=== PATIENT | female | born 1995 | race Hispanic/Latino ===

== ENCOUNTER 2016-12-31 13:50 | Emergency (ER) | payer MEDICARE, OTHER, MEDICAID ==
[2016-12-31 13:50] VITALS: BMI 23.6
[2016-12-31 15:01] LABS: ADD MANUAL DIFF? NO
[2016-12-31 15:03] LABS: BASO # 0.02 K/mm3 (0.0-2.0); BASO % 0.2 % (0.0-3.0); EOS # 0.2 (0.0-0.7); EOS % 1.9 % (1.5-5.0); GRAN % 77.5 % (50.0-68.0); HEMATOCRIT 39.3 % (36.0-48.0); LYMPH # 1.4 (1.2-3.4); LYMPH % 16.5 % (22.0-35.0); MEAN CORPUSCULAR HEMOGLOBIN 32.9 pg (25.0-35.0); MEAN CORPUSCULAR HGB CONC 36.1 g/dl (31.0-37.0); MONO # 0.3 (0.1-0.6); MONO % 3.9 % (1.0-6.0); PLATELET COUNT 229 10^3/uL (120.0-450.0); RED CELL DISTRIBUTION WIDTH 11.7 % (11.5-14.5); WHITE BLOOD COUNT 8.4 10^3/ul (4.5-11.0)
[2016-12-31 15:13] LABS: ALB/GLOB RATIO 1.6 (1.1-1.8); ALKALINE PHOSPHATASE 65 U/L (38-133); ALT/SGPT 23 U/L (7-56); AST/SGOT 25 U/L (15-39); BILIRUBIN,TOTAL 0.5 mg/dL (0.2-1.3); BLOOD UREA NITROGEN 6 mg/dL (7-21); CALCIUM 9.9 mg/dL (8.4-10.5); CARBON DIOXIDE 26 mmol/L (21-33); CHLORIDE 102 mmol/L (98-107); GFR AFRICAN-AMERICAN > 60; GLUCOSE,RANDOM 146 mg/dL (70-110); POTASSIUM 4.1 mmol/L (3.6-5.0); SODIUM 135 mmol/L (132-148); TOTAL PROTEIN 7.4 g/dL (5.8-8.3)
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
[2016-12-31 15:52] LABS: URINE APPEARANCE CLEAR (CLEAR); URINE BILIRUBIN NEGATIVE (NEGATIVE); URINE BLOOD NEGATIVE (NEGATIVE); URINE COLOR STRAW (YELLOW); URINE GLUCOSE (UA) NEGATIVE (NEGATIVE); URINE KETONE NEGATIVE (NEGATIVE); URINE LEUKOCYTE ESTERASE NEGATIVE Leu/uL (NEGATIVE); URINE PROTEIN NEGATIVE mg/dL (<30 mg/dL); URINE UROBILINOGEN 0.2 E.U./dL (<1 E.U./dL)
--- NOTE | 2016-12-31 16:29 | RAD ---
HISTORY: pes eval COMPARISON: 07/16/2016 FINDINGS: LUNGS: No active pulmonary disease. PLEURA: No significant pleural effusion identified, no pneumothorax apparent. CARDIOVASCULAR: Normal. OSSEOUS STRUCTURES: No significant abnormalities. VISUALIZED UPPER ABDOMEN: Normal. OTHER FINDINGS: None. IMPRESSION: No active disease.
--- NOTE | 2016-12-31 18:17 | CARD ---
APPROVED REPORT EKG Measurement Heart [id number] <Conclusion> Sinus tachycardia Incomplete right bundle branch block Nonspecific T wave abnormality Abnormal ECG
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
[2017-01-01] MEDS ORDERED: DiphenhydrAMINE 50 mg/ml Inj IM PRN (10:00)
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
[2017-01-01 13:05] VITALS: RESP 18
[2017-01-01 13:16] VITALS: BP 120/88; PULSE 120; TEMP 99.9; O2SAT 97
[2017-01-01] MEDS ORDERED: OLANZapine 5 mg Disintegrating Tab PO SCH (22:00)
== END 2017-01-01 13:19 | disposition short-term general hospital (02) ==
LOC: ED 13:50
DX: Z00.8 Encounter for other general examination (principal); F41.9 Anxiety disorder, unspecified; F31.9 Bipolar disorder, unspecified
CPT/HCPCS: 71010; 80053; 80178; 81003; 84703; 85025; 90791; 93005; 96372; 99285; G0480; J1200; J1630; J2060

== ENCOUNTER 2017-04-18 23:19 | Emergency (ER) | payer MEDICARE, OTHER ==
[2017-04-18 23:20] VITALS: BMI 23.6
[2017-04-18 23:36] VITALS: TEMP 97.5; O2SAT 99
[2017-04-19] MEDS ORDERED: Sodium Chloride 0.9% 1,000 ML IV STA (00:21)
[2017-04-19] MEDS ORDERED: Atrop/Hyosc/Scopal/PB Elixir (120 ml) PO STA (00:21)
[2017-04-19] MEDS ORDERED: Alum-Mag Hydrox-Simethicone Susp (30 mL) PO STA (00:21)
--- NOTE | 2017-04-19 01:11 | ED PDOC ---
Arrival/HPI - General Historian: Patient <Sophia Gruber PA-C - Last Filed: 04/20/17 01:09> <Oz Wilson - Last Filed: 04/20/17 06:18> - General Chief Complaint: GI Problem Time Seen by Provider: 04/18/17 23:48 - History of Present Illness Narrative History of Present Illness (Text): 04/19/17 01:03 Patient w/ pmh of GERD, complains of 1 month h/o intermittent epigastric pain radiating to the sternal area of her chest, described as heartburn, and is typical of her heartburn symptoms. She reports having a h/o a minor ulcer to her stomach dx via endoscropy by her GI MD in [facility], [place], was placed on anti-ulcer medication which she took and complete, however is currently not on any at this time. Otherwise: (+) nausea, (-) vomiting, (-) diarrhea, (-) chest pain, (-) SOB, (-) fever, (-) cough, (-) urinary symptoms, (-) melena, (-) hematochezia. Has no history of prior abdominal surgery. PMD Autumn (Sophia Gruber PA-C) Past Medical History - Provider Review Nursing Documentation Reviewed: Yes - Infectious Disease Hx of Infectious Diseases: None - Tetanus Immunization Tetanus Immunization: Unknown - Past Medical History Past Medical History: No Previous - Cardiac Hx Cardiac Disorders: No - Pulmonary Hx Respiratory Disorders: Yes Hx Bronchitis: Yes - Neurological Hx Neurological Disorder: No - HEENT Hx HEENT Disorder: No - Renal Hx Renal Disorder: No - Endocrine/Metabolic Hx Endocrine Disorders: No - Hematological/Oncological Hx Blood Disorders: No - Integumentary Hx Dermatological Disorder: No - Musculoskeletal/Rheumatological Hx Musculoskeletal Disorders: No Hx Falls: No - Gastrointestinal Hx Gastrointestinal Disorders: No - Genitourinary/Gynecological Hx Genitourinary Disorders: No - Psychiatric Hx Psychophysiologic Disorder: Yes Hx Anxiety: Yes Hx Bipolar Disorder: Yes Hx Depression: Yes Hx Hallucinations: Yes Hx Psychosis: Yes Hx Schizophrenia: Yes Hx Substance Use: No - Past Surgical History Past Surgical History: No Previous - Surgical History Hx Abdominal Aortic Aneurysm Repair: No - Anesthesia Hx Anesthesia: No - Suicidal Assessment Feels Threatened In Home Enviroment: No <Sophia Gruber PA-C. - Last Filed: 04/20/17 01:09> Family/Social History - Physician Review Nursing Documentation Reviewed: Yes Family/Social History: No Known Family HX Smoking Status: Former Smoker Hx Alcohol Use: No Hx Substance Use: No Substance used: overdose ambien Hx Substance Use Treatment: Yes <Sophia Gruber PA-C - Last Filed: 04/20/17 01:09> Allergies/Home Meds <Sophia Gruber PA-C - Last Filed: 04/20/17 01:09> <Oz Wilson - Last Filed: 04/20/17 06:18> Allergies/Adverse Reactions: Allergies No Known Allergies Allergy (Verified 12/31/16 14:40) Home Medications: Home Meds Medication Instructions Recorded Confirmed Paliperidone Palmitate [Invega 234 mg IM .MONTHLY 11/07/15 04/18/17 Sustenna] Devens Carbonate [Devens 300 mg PO .MORNING 09/23/16 04/18/17 Carbonate 300MG] Devens Carbonate [Devens 600 mg PO .HS 09/23/16 04/18/17 Carbonate] Paliperidone [Invega] 9 mg PO DAILY 09/23/16 04/18/17 Review of Systems - Review of Systems Constitutional: Normal. absent: Fatigue, Weight Change, Fevers Respiratory: Normal. absent: SOB, Cough, Sputum Cardiovascular: Normal. absent: Chest Pain, Palpitations, Edema Gastrointestinal: Normal, Abdominal Pain, Nausea. absent: Stool Changes, Vomiting, Appetite Changes Musculoskeletal: Normal. absent: Arthralgias, Back Pain, Neck Pain Skin: Normal. absent: Rash, Pruritis, Skin Lesions <Sophia Gruber PA-C - Last Filed: 04/20/17 01:09> Physical Exam <Sophia Gruber PA-C - Last Filed: 04/20/17 01:09> <Oz Wilson - Last Filed: 04/20/17 06:18> - Physical Exam Narrative Physical Exam (Text): 04/19/17 01:11 GENERAL APPEARANCE: Patient is awake, alert, oriented x 3, in mild painful distress. SKIN: Warm, dry; (-) cyanosis. EYES: (-) conjunctival pallor, (-) scleral icterus. ENMT: Mucous membranes dry. NECK: (-) tenderness, (-) stiffness, (-) lymphadenopathy. CHEST AND RESPIRATORY: (-) rales, (-) rhonchi, (-) wheezes; breath sounds equal bilaterally. HEART AND CARDIOVASCULAR: (-) irregularity; (-) murmur, (-) gallop. ABDOMEN AND GI: (-) distention. Bowel sounds active; (+) mild tenderness in the epigastric area, (-) guarding, (-) rebound, (-) palpable masses, (-) CVA tenderness. EXTREMITIES: (-) deformity, (-) edema, (+) distal pulses. NEURO AND PSYCH: Mental status as above; (-) focal findings. (Sophia Gruber PA-C) Vital Signs Temp Pulse Resp BP Pulse Ox 04/19/17 02:15 68 24 128/70 99 04/18/17 23:31 97.5 F L 64 18 132/72 99 Medical Decision Making <Sophia Gruber PA-C - Last Filed: 04/20/17 01:09> <Oz Wilson - Last Filed: 04/20/17 06:18> ED Course and Treatment: 04/19/17 01:12 21 yo F w/ pmh of GERD, complains of 1 month h/o intermittent epigastric pain radiating to the sternal area of her chest, described as heartburn, and is typical of her heartburn symptoms. Plan: -- Labs -- IV fluids -- Protonix / Zofran / GI cocktail -- Reassess and disposition Labs reviewed and are wnl. On re-evaluation, patient reports significant improvement of her symptoms. Reports no abdominal pain, N/V. On exam, abdomen remains soft with no tenderness, no guarding or rebound. Patient notified of likely diagnosis of GERD / dyspepsia. Advised to follow up with primary care physician in 1-2 days without fail. Advised to take medication as prescribed. Return to the emergency room at any time for any new or worsening symptoms. Patient states she fully agrees with and understands discharge instructions. States that she agrees with the plan and disposition. Verbalized and repeated discharge instructions and plan. I have given the patient opportunity to ask any additional questions. (Sophia Gruber PA-C) - Lab Interpretations Lab Results: 04/19/17 01:16 04/19/17 01:16 Lab Results 04/19/17 01:16: Sodium 139, Potassium 3.5 L, Chloride 97, Carbon Dioxide 34 H, Anion Gap 12, BUN 10, Creatinine 0.7, Est GFR ( Amer) > 60, Est GFR (Non- Af Amer) > 60, Random Glucose 122 H, Calcium 9.7, Total Bilirubin 0.9, AST 30, ALT 25, Alkaline Phosphatase 88, Total Protein 7.5, Albumin 4.6, Globulin 2.9, Albumin/Globulin Ratio 1.6, Lipase 55 04/19/17 01:16: WBC 10.7 D, RBC 4.95, Hgb 16.0, Hct 46.3, MCV 93.5, MCH 32.3, MCHC 34.6, RDW 11.4 L, Plt Count 233, MPV 10.0, Gran % 71.9 H, Lymph % (Auto) 17.3 L, [place] % (Auto) 5.9, Eos % (Auto) 4.4, Baso % (Auto) 0.5, Gran # 7.70 H, Lymph # 1.9, [place] # 0.6, Eos # 0.5, Baso # 0.05 - Medication Orders Current Medication Orders: Discontinued Medications Al Hydrox/Mg Hydrox/Simethicone (Maalox Plus 30 Ml) 30 ml PO STAT STA Stop: 04/19/17 00:22 Last Admin: 04/19/17 01:02 Dose: 30 ml Belladonna/Phenobarbital ( Elixir) 5 ml PO STAT STA Stop: 04/19/17 00:22 Last Admin: 04/19/17 01:38 Dose: 5 ml Sodium Chloride (Sodium Chloride 0.9%) 1,000 mls @ 1,000 mls/hr IV .Q1H STA Stop: 04/19/17 01:20 Last Admin: 04/19/17 01:02 Dose: 1,000 mls/hr Lidocaine HCl (Lidocaine 2% Viscous) 15 ml PO STAT STA Stop: 04/19/17 00:22 Last Admin: 04/19/17 01:01 Dose: 15 ml Ondansetron HCl (Zofran Inj) 4 mg IVP STAT STA Stop: 04/19/17 00:22 Last Admin: 04/19/17 01:39 Dose: 4 mg Pantoprazole Sodium (Protonix Inj) 40 mg IVP STAT STA Stop: 04/19/17 00:22 Last Admin: 04/19/17 01:02 Dose: 40 mg Potassium Chloride (Potassium Chloride Oral Soln) 40 meq PO STAT STA Stop: 04/19/17 01:53 Last Admin: 04/19/17 02:10 Dose: 40 meq - PA / GANG MINER / Resident Statement CHELSIE has reviewed & agrees with the documentation as recorded. <Sophia Gruber PA-C - Last Filed: 04/20/17 01:09> - PA / GANG MINER / Resident Statement CHELSIE has reviewed & agrees with the documentation as recorded. <Oz Wilson - Last Filed: 04/20/17 06:18> Disposition/Present on Arrival - Present on Arrival Any Indicators Present on Arrival: No History of DVT/PE: No History of Uncontrolled Diabetes: No Urinary Catheter: No History of Decub. Ulcer: No History Surgical Site Infection Following: None - Disposition Have Diagnosis and Disposition been Completed?: Yes Disposition Time: 02:00 Patient Plan: Discharge <Sophia Gruber PA-C - Last Filed: 04/20/17 01:09> <Oz Wilson - Last Filed: 04/20/17 06:18> - Disposition Diagnosis: GERD (gastroesophageal reflux disease) Disposition: HOME/ ROUTINE Condition: IMPROVED Discharge Instructions (ExitCare): Gastroesophageal Reflux Disease (ED) Print Language: SLOVENIAN Additional Instructions: Thank you for letting us take care of you today. You were treated for GERD. The emergency medical care you received today was directed at your acute symptoms. If you were prescribed any medication, please fill it and take as directed. It may take several days for your symptoms to resolve. Return to the Emergency Department if your symptoms worsen, do not improve, or if you have any other problems. Please contact your doctor in 2 days for re-evaluation and follow up. Bring any paperwork you were given at discharge with you along with any medications you are taking to your follow up visit. Our treatment cannot replace ongoing medical care by a primary care provider (PCP) outside of the emergency department. Thank you for allowing the [facility] team to be part of your care today. Prescriptions: Atropine/Hyoscyamine [] 1 tab PO TID PRN #20 tab PRN Reason: Dyspepsia Pantoprazole Sodium [Protonix] 40 mg PO DAILY #30 ect Forms: [facility] (Khmer), WORK NOTE
[2017-04-19 01:30] LABS: GRAN % 71.9 % (50.0-68.0); HEMATOCRIT 46.3 % (36.0-48.0); MEAN CELL VOLUME 93.5 fl (80.0-105.0); MEAN CORPUSCULAR HEMOGLOBIN 32.3 pg (25.0-35.0); MEAN CORPUSCULAR HGB CONC 34.6 g/dl (31.0-37.0); RED CELL DISTRIBUTION WIDTH 11.4 % (11.5-14.5); WHITE BLOOD COUNT 10.7 10^3/ul (4.5-11.0)
[2017-04-19 01:31] LABS: BASO # 0.05 K/mm3 (0.0-2.0); BASO % 0.5 % (0.0-3.0); EOS # 0.5 (0.0-0.7); EOS % 4.4 % (1.5-5.0); GRAN # 7.7 (1.4-6.5); LYMPH # 1.9 (1.2-3.4); LYMPH % 17.3 % (22.0-35.0); MONO # 0.6 (0.1-0.6); MONO % 5.9 % (1.0-6.0)
[2017-04-19 01:33] LABS: ALB/GLOB RATIO 1.6 (1.1-1.8); ALKALINE PHOSPHATASE 88 U/L (38-126); ALT/SGPT 25 U/L (7-56); AST/SGOT 30 U/L (14-36); BILIRUBIN,TOTAL 0.9 mg/dL (0.2-1.3); BLOOD UREA NITROGEN 10 mg/dL (7-21); CALCIUM 9.7 mg/dL (8.4-10.5); CARBON DIOXIDE 34 mmol/L (21-33); CHLORIDE 97 mmol/L (95-110); GFR AFRICAN-AMERICAN > 60; GLUCOSE,RANDOM 122 mg/dL (70-110); LIPASE 55 U/L (23-300); POTASSIUM 3.5 mmol/L (3.6-5.0); SODIUM 139 mmol/L (132-148); TOTAL PROTEIN 7.5 g/dL (5.8-8.3)
[2017-04-19] MEDS ORDERED: Potassium Chloride 40 mEq/30 ml LIQ UD PO STA (01:52)
[2017-04-19 05:11] VITALS: BP 128/70; PULSE 68; RESP 24
== END 2017-04-19 02:15 | disposition home or self-care (01) ==
LOC: ED 23:19
DX: K21.9 Gastro-esophageal reflux disease without esophagitis (principal)
CPT/HCPCS: 80053; 83690; 85025; 96361; 96374; 96375; 99281; C9113; J2405; J3480; J7040